=== PATIENT | female | born 2000 | race Caucasian/White ===

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

== ENCOUNTER 2020-10-29 23:00 | Emergency (ER) | payer OTHER ==
[~2020-10-29] VITALS: Ht 157.4 cm; Wt 48.1 kg
[2020-10-29 23:06] VITALS: BP 106/62
[2020-10-30 00:31] LABS: BILIRUBIN Negative (Negative); BLOOD Negative (Negative); CLARITY Clear (Clear); COLOR Yellow (Yellow); GLUCOSE Negative (Negative); KETONE Trace (Negative); LEUKO ESTERASE Negative (Negative); NITRITE Negative (Negative); SPECIFIC GRAVITY >= 1.030 (1.001-1.030)
[2020-10-30 00:39] LABS: BACTERIA 1+; WBC 0-2 wbc/hpf (0-5)
[2020-10-30] MEDS ORDERED: VIBRAMYCIN100 MG PO (01:01)
== END 2020-10-30 01:43 | disposition home or self-care (01) ==
LOC: ED 23:00
PROVIDERS: Internal Medicine
DX: R10.2 Pelvic and perineal pain (principal); R10.31 Right lower quadrant pain; Z79.899 Other long term (current) drug therapy

== ENCOUNTER 2021-01-23 21:37 | Emergency (ER) | payer OTHER ==
[~2021-01-23] VITALS: Ht 160 cm; Wt 54.4 kg
[~2021-01-23 21:37] MED LIST changes: +VIBRAMYCIN100 MG PO
[2021-01-23 22:52] LABS: BASO % 0.2 % (0.0-1.0); EOS # 0.1 10*3/uL (0.0-0.4); EOS % 0.9 % (1.0-4.0); HEMATOCRIT 35.1 % (37.0-47.0); LYMPH # 2.1 10*3/uL (1.3-4.4); LYMPH % 14.9 % (27.0-41.0); MEAN CELL VOLUME 86.9 fl (81.0-99.0); MEAN CORPUSCULAR HGB 28.2 pg (27.0-31.0); MEAN CORPUSCULAR HGB CONC 32.5 g/dl (33.0-37.0); MEAN PLATELET VOLUME 9.2 fl (9.6-12.3); MONO # 0.6 10*3/uL (0.1-1.0); MONO % 4.1 % (3.0-9.0); NEUT % 79.5 % (47.0-73.0); PLATELET COUNT AUTOMATED 300 10*3/uL (130-400); RED BLOOD COUNT 4.04 10*6/uL (4.10-5.10); RED CELL DISTRI WIDTH 13.2 % (0-14.5); WHITE BLOOD COUNT 13.9 10*3/uL (4.8-10.8)
[2021-01-24 01:31] LABS: BASO % 0.2 % (0.0-1.0); EOS % 0.2 % (1.0-4.0); HEMATOCRIT 22.2 % (37.0-47.0); MEAN CELL VOLUME 89.9 fl (81.0-99.0); MEAN CORPUSCULAR HGB 28.3 pg (27.0-31.0); MEAN CORPUSCULAR HGB CONC 31.5 g/dl (33.0-37.0); MEAN PLATELET VOLUME 9.4 fl (9.6-12.3); MONO # 0.5 10*3/uL (0.1-1.0); MONO % 3.4 % (3.0-9.0); NEUT % 82.8 % (47.0-73.0); PLATELET COUNT AUTOMATED 259 10*3/uL (130-400); RED BLOOD COUNT 2.47 10*6/uL (4.10-5.10); WHITE BLOOD COUNT 15.7 10*3/uL (4.8-10.8)
[2021-01-24 01:45] LABS: INTERNATIONAL NORM RATIO 1.2 (2.0-3.5)
[2021-01-24 01:47] LABS: ALBUMIN 2.1 gm/dl (3.1-4.5); ALKALINE PHOSPHATASE 27 U/L (45-117); BUN 9 mg/dl (7-24); CHLORIDE 116 mmol/L (98-107); CREATININE 0.64 mg/dL (0.55-1.02); POTASSIUM 3.7 mmol/L (3.5-5.1); SGOT/AST 5 IU/L (3-35); SGPT/ALT 8 U/L (12-78); SODIUM 143 mmol/L (136-145); TOTAL PROTEIN 4.1 gm/dL (6.4-8.2)
[2021-01-24 02:02] VITALS: BP 91/39
== END 2021-01-24 03:50 | disposition short-term general hospital (02) ==
LOC: ED 21:37
PROVIDERS: Emergency Medicine
DX: O04.89 (Induced) termination of pregnancy with other complications (principal); N93.8 Other specified abnormal uterine and vaginal bleeding; R42 Dizziness and giddiness; Z79.899 Other long term (current) drug therapy

== ENCOUNTER 2021-03-24 12:25 | Emergency (ER) | payer OTHER ==
[~2021-03-24] VITALS: Ht 157.4 cm; Wt 47.6 kg
[2021-03-24 12:59] LABS: BILIRUBIN Negative (Negative); BLOOD 2+ (Negative); CLARITY Turbid (Clear); COLOR Yellow (Yellow); GLUCOSE Negative (Negative); KETONE Trace (Negative); LEUKO ESTERASE 3+ (Negative); NITRITE Negative (Negative); PH 6.5 (4.5-8.0); SPECIFIC GRAVITY 1.015 (1.001-1.030)
[2021-03-24 13:12] LABS: RBC TNTC rbc/hpf (0-2); WBC TNTC wbc/hpf (0-5)
[2021-03-24 13:22] LABS: BASO % 0.3 % (0.0-1.0); EOS # 0.2 10*3/uL (0.0-0.4); EOS % 1.5 % (1.0-4.0); HEMATOCRIT 37.1 % (37.0-47.0); LYMPH # 1.5 10*3/uL (1.3-4.4); LYMPH % 14.6 % (27.0-41.0); MEAN CELL VOLUME 79.3 fl (81.0-99.0); MEAN CORPUSCULAR HGB 23.7 pg (27.0-31.0); MEAN CORPUSCULAR HGB CONC 29.9 g/dl (33.0-37.0); MEAN PLATELET VOLUME 9.5 fl (9.6-12.3); MONO # 0.7 10*3/uL (0.1-1.0); MONO % 7.1 % (3.0-9.0); NEUT # 7.7 10*3/uL (2.3-7.9); NEUT % 76.3 % (47.0-73.0); PLATELET COUNT AUTOMATED 404 10*3/uL (130-400); RED BLOOD COUNT 4.68 10*6/uL (4.10-5.10); RED CELL DISTRI WIDTH 17.4 % (0-14.5); WHITE BLOOD COUNT 10.1 10*3/uL (4.8-10.8)
[2021-03-24 13:41] LABS: ALBUMIN 4.2 gm/dl (3.1-4.5); ALKALINE PHOSPHATASE 51 U/L (45-117); BUN 9 mg/dl (7-24); CHLORIDE 111 mmol/L (98-107); CREATININE 0.81 mg/dL (0.55-1.02); LIPASE 74 U/L (73-393); POTASSIUM 4.2 mmol/L (3.5-5.1); SGOT/AST 14 IU/L (3-35); SGPT/ALT 14 U/L (12-78); SODIUM 140 mmol/L (136-145)
[2021-03-24] MEDS ORDERED: SEPTDS PO (14:29)
== END 2021-03-24 15:19 | disposition home or self-care (01) ==
LOC: ED 12:25
PROVIDERS: Emergency Medicine
DX: N12 Tubulo-interstitial nephritis, not specified as acute or chronic (principal); F17.200 Nicotine dependence, unspecified, uncomplicated; Z79.899 Other long term (current) drug therapy; Z79.2 Long term (current) use of antibiotics

== ENCOUNTER 2022-12-31 20:51 | Emergency (ER) | payer OTHER ==
[~2022-12-31] VITALS: Ht 157.4 cm; Wt 41.7 kg
[~2022-12-31 20:51] MED LIST changes: +SEPTDS PO
== END 2022-12-31 23:33 | disposition home or self-care (01) ==
LOC: ED 20:51
DX: U07.1 COVID-19 (principal); J02.0 Streptococcal pharyngitis

== ENCOUNTER → 2023-06-21 | Outpatient (CLI) | payer OTHER ==
[2023-06-21 10:35] LABS: HEMATOCRIT 44.3 % (37.0-47.0); MEAN CORPUSCULAR HGB 28.5 pg (27.0-31.0); MEAN CORPUSCULAR HGB CONC 32.7 g/dl (33.0-37.0); MEAN PLATELET VOLUME 8.9 fl (9.6-12.3); RED BLOOD COUNT 5.09 10*6/uL (4.10-5.10); WHITE BLOOD COUNT 6.3 10*3/uL (4.8-10.8)
[2023-06-21 11:27] LABS: ALKALINE PHOSPHATASE 52 U/L (46-116); BUN 7 mg/dl (9-23); CHLORIDE 105 mmol/L (98-107); CHOLESTEROL 145 mg/dL (<200); FREE T4 1.12 ng/dl (0.89-1.76); LDL CHOLESTEROL 71 mg/dL (9-159); POTASSIUM 3.8 mmol/L (3.4-5.1); SGPT/ALT 18 U/L (5-49); TRIGLYCERIDES 30 mg/dl (<150)
== END | disposition home or self-care (01) ==
LOC: LAB 10:03
PROVIDERS: ATTEND Family Medicine
DX: Z13.820 Encounter for screening for osteoporosis (principal); E78.00 Pure hypercholesterolemia, unspecified; K21.9 Gastro-esophageal reflux disease without esophagitis; M79.10 Myalgia, unspecified site; M25.50 Pain in unspecified joint; M79.605 Pain in left leg; M79.604 Pain in right leg

== ENCOUNTER 2024-01-30 06:04 | Emergency (ER) | payer OTHER ==
[~2024-01-30] VITALS: Ht 157.4 cm; Wt 48.1 kg
[2024-01-30 06:16] VITALS: BP 112/59
[2024-01-30] MEDS ORDERED: AMOX-CLAV 875-1 EACH PO (06:19)
[2024-01-30] MEDS ORDERED: ACETAMINOPHEN 325 MG TAB PO ONE (06:25)
== END 2024-01-30 06:35 | disposition home or self-care (01) ==
LOC: ED 06:04
DX: H66.92 Otitis media, unspecified, left ear (principal)

== ENCOUNTER 2024-04-17 15:11 | Emergency (ER) | payer OTHER ==
[~2024-04-17] VITALS: Ht 157.4 cm; Wt 45.4 kg
[~2024-04-17 15:11] MED LIST changes: +AMOX-CLAV 875-1 EACH PO
[2024-04-17] MEDS ORDERED: Ketorolac Tromethamine 15 MG/ML VIAL IV ONE (15:20)
[2024-04-17] MEDS ORDERED: SODIUM CHLORIDE 0.9% 1,000 ML IV ONE (15:20)
[2024-04-17 15:21] VITALS: BP 98/60
[2024-04-17 15:35] LABS: BASO % 0.4 % (0.0-1.0); EOS # 0.2 10*3/uL (0.0-0.4); EOS % 3.1 % (1.0-4.0); HEMATOCRIT 44.2 % (37.0-47.0); LYMPH # 1.2 10*3/uL (1.3-4.4); LYMPH % 22.4 % (27.0-41.0); MEAN CELL VOLUME 90.4 fl (81.0-99.0); MEAN CORPUSCULAR HGB 29.4 pg (27.0-31.0); MEAN CORPUSCULAR HGB CONC 32.6 g/dl (33.0-37.0); MONO # 0.5 10*3/uL (0.1-1.0); MONO % 8.5 % (3.0-9.0); NEUT # 3.5 10*3/uL (2.3-7.9); NEUT % 65.2 % (47.0-73.0); PLATELET COUNT AUTOMATED 258 10*3/uL (130-400); RED BLOOD COUNT 4.89 10*6/uL (4.10-5.10); RED CELL DISTRI WIDTH 13.6 % (0-14.5); WHITE BLOOD COUNT 5.4 10*3/uL (4.8-10.8)
[2024-04-17 15:56] LABS: BUN 9 mg/dl (9-23); CHLORIDE 107 mmol/L (98-107); POTASSIUM 3.8 mmol/L (3.4-5.1)
[2024-04-17 16:16] LABS: BILIRUBIN Negative (Negative); BLOOD Negative (Negative); CLARITY Cloudy (Clear); COLOR Dark Yellow (Yellow); GLUCOSE Negative (Negative); KETONE Trace (Negative); LEUKO ESTERASE 1+ (Negative); NITRITE Negative (Negative); PH 5.5 (4.5-8.0); SPECIFIC GRAVITY >= 1.030 (1.001-1.030)
[2024-04-17 16:32] LABS: BACTERIA 2+; EPITHELIAL CELLS 16-20; MUCOUS 3+
[2024-04-17] MEDS ORDERED: Ceftriaxone Sodium 1 GM/10 ML SYR IV ONE (16:40)
[2024-04-17] MEDS ORDERED: SEPTDS PO (16:42)
== END 2024-04-17 16:51 | disposition home or self-care (01) ==
LOC: ED 15:11
PROVIDERS: Emergency Medicine
DX: N39.0 Urinary tract infection, site not specified (principal); Z98.890 Other specified postprocedural states

== ENCOUNTER 2024-06-09 09:39 | Emergency (ER) | payer OTHER ==
[~2024-06-09] VITALS: Wt 48.1 kg
[2024-06-09 10:21] VITALS: BP 119/67
== END 2024-06-09 10:30 | disposition home or self-care (01) ==
LOC: ED 09:39
DX: Z00.00 Encounter for general adult medical examination without abnormal findings (principal); Z20.5 Contact with and (suspected) exposure to viral hepatitis; Z53.29 Procedure and treatment not carried out because of patient's decision for other reasons

== ENCOUNTER 2024-08-21 19:43 | Emergency (ER) | payer OTHER ==
[2024-08-21 19:53] VITALS: BP 112/59
== END 2024-08-21 20:36 | disposition home or self-care (01) ==
LOC: ED 19:43
DX: Z32.02 Encounter for pregnancy test, result negative (principal)

== ENCOUNTER 2025-05-16 08:59 | Emergency (ER) | payer OTHER ==
[~2025-05-16] VITALS: Ht 157.4 cm; Wt 54.4 kg
[2025-05-16 09:27] VITALS: BP 105/48
[2025-05-16 10:12] LABS: BILIRUBIN Negative (Negative); BLOOD Negative (Negative); CLARITY Clear (Clear); COLOR Yellow (Yellow); KETONE Trace (Negative); LEUKO ESTERASE Negative (Negative); NITRITE Negative (Negative); PH 5.5 (4.5-8.0); SPECIFIC GRAVITY >= 1.030 (1.001-1.030); UROBILINOGEN 0.2 E.U./dl (0.0-1.0)
[2025-05-16 10:40] LABS: BACTERIA 1+; MUCOUS 2+
[2025-05-16] MEDS ORDERED: CEPHALEXIN500 M1 PO (11:00)
== END 2025-05-16 11:30 | disposition home or self-care (01) ==
LOC: ED 08:59
PROVIDERS: Emergency Medicine
DX: O23.41 Unspecified infection of urinary tract in pregnancy, first trimester (principal); N39.0 Urinary tract infection, site not specified; O26.891 Other specified pregnancy related conditions, first trimester; M54.50 Low back pain, unspecified; Z3A.01 Less than 8 weeks gestation of pregnancy

== ENCOUNTER 2025-08-16 13:00 | Emergency (ER) | payer OTHER ==
[~2025-08-16] VITALS: Ht 157.4 cm; Wt 59.9 kg
[~2025-08-16 13:00] MED LIST changes: +CEPHALEXIN500 M1 PO
[2025-08-16 13:12] VITALS: BP 103/65
== END 2025-08-16 13:42 | disposition home or self-care (01) ==
LOC: ED 13:00
DX: O26.92 Pregnancy related conditions, unspecified, second trimester (principal); I10 Essential (primary) hypertension; Z87.440 Personal history of urinary (tract) infections; Z3A.18 18 weeks gestation of pregnancy